=== PATIENT | male | born 1975 | race African-American/Black ===

== ENCOUNTER 2018-07-06 19:44 | Emergency (ER) | payer SELFPAY ==
[~2018-07-06] VITALS: Ht 182.9 cm; Wt 127.0 kg
[~2018-07-06 19:44] MED LIST: ACET500T68 PO; ASPI-612 PO; IBUP200T44 PO; LISI-338 PO; METO25TA4 PO
[2018-07-06 19:58] LABS: BASO # 0.1 x10^3/uL (0.0-0.2); BASO % 1 % (0-3); EOS # 0.2 x10^3/uL (0.0-0.7); EOS % 4 % (0-3); HEMATOCRIT 46.1 % (39.0-53.0); HEMOGLOBIN 15.2 g/dL (13.0-17.5); LYMPH # 2.7 x10^3/uL (1.0-4.8); LYMPH % 40 % (24-48); MEAN CORPUSCULAR HEMOGLOBIN 28 pg (25-35); MEAN CORPUSCULAR HGB CONC 33 g/dL (31-37); MEAN CORPUSCULAR VOLUME 86 fL (79-100); MONO # 0.5 x10^3/uL (0.0-1.1); MONO % 7 % (0-9); NEUT # 3.3 x10^3uL (1.8-7.7); NEUT % 48 % (31-73); PLATELET COUNT 228 x10^3/uL (140-400); RED BLOOD COUNT 5.37 x10^6/uL (4.30-5.70); RED CELL DISTRIBUTION WIDTH 14.6 % (11.5-14.5); WHITE BLOOD COUNT 6.8 x10^3/uL (4.0-11.0)
[2018-07-06] MEDS ORDERED: IV NORMAL SALINE 1000ML BAG 1,000 ML IV ONE (20:00)
[2018-07-06 20:09] LABS: CALCIUM 9.3 mg/dL (8.5-10.1); CREATININE 1.2 mg/dL (0.7-1.3); GFR 79.6; POTASSIUM 3.8 mmol/L (3.5-5.1)
[2018-07-06 20:10] LABS: PROTHROMBIN TIME PATIENT 12.8 SEC (11.7-14.0)
[2018-07-06 20:15] LABS: ALBUMIN 3.9 g/dL (3.4-5.0); ALBUMIN/GLOBULIN RATIO 1.2 (1.0-1.7); TOTAL BILIRUBIN 0.3 mg/dL (0.2-1.0); TOTAL PROTEIN 7.1 g/dL (6.4-8.2)
[2018-07-06] MEDS ORDERED: LABETALOL 20 MG/4 ML DISP.SYRIN. IVP ONE (20:45)
--- NOTE | 2018-07-06 21:07 | RAD ---
CT scan of the head without contrast 07/06/2018 Clinical History: Hypertension. Technique: Unenhanced, contiguous, 5 mm axial sections were obtained through the head. One or more of the following individualized dose reduction techniques were utilized for this study: 1. Automated exposure control. 2. Adjustment of the mA and/or kV according to patient size. 3. Use of iterative reconstruction technique. Findings: No previous studies are available for comparison. There is mild generalized parenchymal atrophy. No acute parenchymal abnormality is seen. No extra-axial fluid collection is noted. No skull fracture is seen. Impression: No acute intracranial abnormality is seen. Electronically signed by: Doc Briceno MD (07/06/2018 9:03 PM) [facility]
[2018-07-06 22:06] VITALS: BP 190/117
--- NOTE | 2018-07-07 01:12 | PHYS DOC ---
Past Medical History Past Medical History: Hypertension Additional Past Medical Histor: CHRONIC BACK PAIN, DRUG ABUSE Past Surgical History: No Surgical History Alcohol Use: Occasionally Drug Use: Marijuana, Phencyclidine, Other Adult General Chief Complaint Chief Complaint: ALTERED MENTAL STATUS HPI HPI Patient is a 42 year old male who is presenting with chief complaint of altered mental status. Patient was found down on the street reported history of PCP use. History limited by the patient's mental status. Patient denies any chest pain no shortness of breath does take blood pressure medicine he says he has enough prescriptions at home although he has not been compliant today Review of Systems Review of Systems Limited by altered mental status Current Medications Current Medications Current Medications Medications (Trade) Dose Ordered Sig/Marimar Start Time Stop Time Status Last Admin Dose Admin Labetalol HCl (Normodyne Iv Push) 20 mg 1X ONCE 07/06/18 20:45 07/06/18 20:46 DC 07/06/18 21:37 20 MG Lorazepam (Ativan Inj) 2 mg 1X ONCE 07/06/18 20:00 07/06/18 20:01 DC 07/06/18 20:00 2 MG Sodium Chloride 1,000 ml @ 1,000 mls/hr 1X ONCE 07/06/18 20:00 07/06/18 20:59 DC 07/06/18 20:00 1,000 MLS/HR Allergies Allergies Allergies Coded Allergies Type Severity Reaction Last Updated Verified No Known Drug Allergies 05/16/13 No Physical Exam Physical Exam Constitutional: Well developed, well nourished, mild distress HENT: Normocephalic, abrasion on the anterior lip, bilateral external ears normal, oropharynx moist, no oral exudates, nose normal. [] Eyes: PERRLA, EOMI, conjunctiva normal, no discharge. [] Neck: Normal range of motion, no tenderness, supple, no stridor. [] Cardiovascular: Mild tachycardia no definite murmur Lungs & Thorax: Bilateral breath sounds clear to auscultation [] Abdomen: Bowel sounds normal, soft, no tenderness, no masses, no pulsatile masses. [] Skin: Warm, dry, no erythema, no rash. [] Back: No tenderness, no CVA tenderness. [] Extremities: No tenderness, no cyanosis, no clubbing, ROM intact, no edema. [] Neurologic: Alert and oriented X 2, normal motor function, normal sensory function, no focal deficits noted. []Gait normal Psychologic: Affect normal, judgement normal, moodM mild anxiety Current Patient Data Vital Signs Vital Signs Date Time Temp Pulse Resp B/P (MAP) Pulse Ox O2 Delivery O2 Flow Rate FiO2 07/06/18 22:06 87 07/06/18 21:37 208/134 07/06/18 20:44 97 07/06/18 19:44 99.0 18 Room Air 99.0 Lab Values Laboratory Tests Test 07/06/18 19:50 White Blood Count 6.8 x10^3/uL (4.0-11.0) Red Blood Count 5.37 x10^6/uL (4.30-5.70) Hemoglobin 15.2 g/dL (13.0-17.5) Hematocrit 46.1 % (39.0-53.0) Mean Corpuscular Volume 86 fL (79-100) Mean Corpuscular Hemoglobin 28 pg (25-35) Mean Corpuscular Hemoglobin Concent 33 g/dL (31-37) Red Cell Distribution Width 14.6 % (11.5-14.5) H Platelet Count 228 x10^3/uL (140-400) Neutrophils (%) (Auto) 48 % (31-73) Lymphocytes (%) (Auto) 40 % (24-48) Monocytes (%) (Auto) 7 % (0-9) Eosinophils (%) (Auto) 4 % (0-3) H Basophils (%) (Auto) 1 % (0-3) Neutrophils # (Auto) 3.3 x10^3uL (1.8-7.7) Lymphocytes # (Auto) 2.7 x10^3/uL (1.0-4.8) Monocytes # (Auto) 0.5 x10^3/uL (0.0-1.1) Eosinophils # (Auto) 0.2 x10^3/uL (0.0-0.7) Basophils # (Auto) 0.1 x10^3/uL (0.0-0.2) Prothrombin Time 12.8 SEC (11.7-14.0) Prothrombin Time INR 1.0 (0.8-1.1) Sodium Level 144 mmol/L (136-145) Potassium Level 3.8 mmol/L (3.5-5.1) Chloride Level 106 mmol/L (98-107) Carbon Dioxide Level 26 mmol/L (21-32) Anion Gap 12 (6-14) Blood Urea Nitrogen 15 mg/dL (8-26) Creatinine 1.2 mg/dL (0.7-1.3) Estimated GFR (Cockcroft-Gault) 79.6 BUN/Creatinine Ratio 13 (6-20) Glucose Level 105 mg/dL (70-99) H Calcium Level 9.3 mg/dL (8.5-10.1) Total Bilirubin 0.3 mg/dL (0.2-1.0) Aspartate Amino Transferase (AST) 31 U/L (15-37) Alanine Aminotransferase (ALT) 36 U/L (16-63) Alkaline Phosphatase 102 U/L (46-116) Total Protein 7.1 g/dL (6.4-8.2) Albumin 3.9 g/dL (3.4-5.0) Albumin/Globulin Ratio 1.2 (1.0-1.7) Laboratory Tests 07/06/18 19:50 Laboratory Tests 07/06/18 19:50 EKG EKG [] Radiology/Procedures Radiology/Procedures [] Impressions: Findings: No previous studies are available for comparison. There is mild generalized parenchymal atrophy. No acute parenchymal abnormality is seen. No extra-axial fluid collection is noted. No skull fracture is seen. Impression: No acute intracranial abnormality is seen. Electronically signed by: Doc Briceno MD (07/06/2018 9:03 PM) [facility] DICTATED and SIGNED BY: DOC BRICENO MD DATE: 07/06/182102 Course & Med Decision Making Course & Med Decision Making Pertinent Labs and Imaging studies reviewed. (See chart for details) PCP use CT head was done given the elevated blood pressure we did give a dose of labetalol to blood pressure did come down to still elevated but safe for discharge home patient says he has blood pressure medication he can take when he gets home. He N Lutz with a steady gait he is discharged after improvement in his mental status in stable condition Dragon Disclaimer Dragon Disclaimer This electronic medical record was generated, in whole or in part, using a voice recognition dictation system. Departure Departure Impression: Primary Impression: Drug abuse Disposition: HOME, SELF-CARE Condition: STABLE Referrals: JIM INGRAM (PCP) Patient Instructions: Drug Abuse, FAQs SCOT ENRIQUEZ MD July 07, 2018 01:12
--- NOTE | 2018-07-07 07:20 | EKG ---
[facility] [address] [place] [address] Test Date: 2018-07-06 Test Time: 19:59:53 Pat Name: FAITH GALEANO Department: Room: Gender: M Fish Packer: : [id number] Requested By: SCOT ENRIQUEZ Order Number: [id number] Reading MD: Amado Cruz Measurements Intervals [place] Rate: 105 P: 36 W[place]: 180 QRS: 28 QRSD: 92 T: 17 QT: 332 QTc: 443 Interpretive Statements SINUS TACHYCARDIA Electronically Signed On 07-29-2018 12:09:45 CDT by Amado Cruz
== END 2018-07-06 22:15 | disposition home or self-care (01) ==
LOC: ER 19:44
DX: F16.20 Hallucinogen dependence, uncomplicated (principal); S00.511A Abrasion of lip, initial encounter; G89.29 Other chronic pain; I10 Essential (primary) hypertension; R41.82 Altered mental status, unspecified; R00.0 Tachycardia, unspecified; X58.XXXA Exposure to other specified factors, initial encounter; Y93.89 Activity, other specified; Y92.488 Other paved roadways as the place of occurrence of the external cause; Y99.8 Other external cause status
CPT/HCPCS: 36415; 70450; 80053; 85025; 85610; 93005; 96361; 96374; 96375; 99285; J2060; J3490; J7030

== ENCOUNTER 2021-06-01 14:31 | Emergency (ER) | payer SELFPAY ==
[~2021-06-01] VITALS: Ht 182.9 cm; Wt 138.8 kg
[~2021-06-01 14:31] MED LIST changes: -ASPI-612 PO; +ASPI-886 PO; -LISI-338 PO; +LISI5TAB15 PO
[2021-06-01 14:36] VITALS: BP 160/87
--- NOTE | 2021-06-01 15:33 | RAD ---
XR FOOT_RIGHT 3 VIEWS, XR EXAM OF ANKLE_RIGHT 3VIEWS Clinical indications: Reason: pain / Spl. Instructions: / History: Right foot: No acute fracture or dislocation or osteolytic process is evident. Plantar spur of the calcaneus is evident. Minimal degenerative osteoarthritis of the first metatarsal phalangeal joint is seen. Right ankle: Medial and lateral soft tissue swelling is seen. There is an old appearing accessory oss ification center of the distal right fibular epiphysis with sclerotic edges. No acute-appearing fract ure is evident otherwise. No lytic process is seen. The mortise ankle joint is intact. Mild degenerat rose spurring of the tibiotalar joint compartment is seen. IMPRESSION: No acute osseous abnormality is evident. Electronically signed by: Pravin Doe MD (06/01/2021 3:31 PM) [id number]
--- NOTE | 2021-06-01 15:36 | PHYS DOC ---
Past Medical History Past Medical History: High Cholesterol, Hypertension Additional Past Medical Histor: CHRONIC BACK PAIN, DRUG ABUSE Past Surgical History: No Surgical History Smoking Status: Current Every Day Smoker Alcohol Use: Occasionally Drug Use: Marijuana, Phencyclidine, Other General Adult EDM: Chief Complaint: ANKLE PROBLEM HPI: HPI: Patient is a 45 year old male with history of hypertension, high cholesterol, presented to the ED today complaining of generalized 7 out of 10 right foot and right ankle pain with swelling, symptoms began 4 days ago. Patient denies any trauma. He states he walks a lot at work and believes this is the trigger for the pain. Describes the pain as sharp and intermittent worse on weightbearing. He states wrapping the ankle and foot with Jordan bandage has been relieving some of the pain. Review of Systems: Review of Systems: Constitutional: Denies fever or chills. [] Musculoskeletal: Reports right foot and right ankle pain and swelling Integument: Denies rash. [] Neurologic: Denies headache, focal weakness or sensory changes. [] Psychiatric: Denies depression or anxiety. [] Heart Score: C/O Chest Pain: N/A Risk Factors: Risk Factors: DM, Current or recent (<one month) smoker, HTN, HLP, family history of CAD, obesity. Risk Scores: Score 0 - 3: 2.5% MACE over next 6 weeks - Discharge Home Score 4 - 6: 20.3% MACE over next 6 weeks - Admit for Clinical Observation Score 7 - 10: 72.7% MACE over next 6 weeks - Early Invasive Strategies Allergies: Allergies: Allergies Coded Allergies Type Severity Reaction Last Updated Verified No Known Drug Allergies 06/01/21 No Physical Exam: PE: Constitutional: Well developed, well nourished, no acute distress, non-toxic appearance. [] Abdomen: Bowel sounds normal, soft, no tenderness, no masses, no pulsatile masses. [] Skin: Warm, dry, no erythema, no rash. [] Back: No tenderness, no CVA tenderness. [] Extremities: Right foot and ankle with no obvious deformity. Soft tissue swelling noted throughout the foot and ankle worse on the right ankle. Tenderness on palpation of the right ankle, no navicular bone tenderness to the foot, no tenderness on the base of the fifth metatarsal of the right foot. Full range of motion to the right foot, ankle, toes. +2 right pedal pulse. Cap r efill less than 2 seconds to right toes. Neurologic: Alert and oriented X 3, normal motor function, normal sensory function, no focal deficits noted. [] Psychologic: Affect normal, judgement normal, mood normal. [] Current Patient Data: Vital Signs: Vital Signs Date Time Temp Pulse Resp B/P (MAP) Pulse Ox O2 Delivery O2 Flow Rate FiO2 06/01/21 14:36 98.6 106 18 160/87 (111) 96 Room Air 98.6 EKG: EKG: [] Radiology/Procedures: Radiology/Procedures: []PROCEDURE: FOOT RIGHT 3V XR FOOT_RIGHT 3 VIEWS, XR EXAM OF ANKLE_RIGHT 3VIEWS Clinical indications: Reason: pain / Spl. Instructions: / History: Right foot: No acute fracture or dislocation or osteolytic process is evident. Plantar spur of the calcaneus is evident. Minimal degenerative osteoarthritis of the first metatarsal phalangeal joint is seen. Right ankle: Medial and lateral soft tissue swelling is seen. There is an old appearing accessory ossification center of the distal right fibular epiphysis wi th sclerotic edges. No acute-appearing fracture is evident otherwise. No lytic process is seen. The mortise ankle joint is intact. Mild degenerative spurring of the tibiotalar joint compartment is seen. IMPRESSION: No acute osseous abnormality is evident. Electronically signed by: Aaron Doe MD (06/01/2021 3:31 PM) [id number] DICTATED and SIGNED BY: AARON DOE MD DATE: 06/01/21 1527 PROCEDURE: ANKLE RIGHT 3V XR FOOT_RIGHT 3 VIEWS, XR EXAM OF ANKLE_RIGHT 3VIEWS Clinical indications: Reason: pain / Spl. Instructions: / History: Right foot: No acute fracture or dislocation or osteolytic process is evident. Plantar spur of the calcaneus is evident. Minimal degenerative osteoarthritis of the first metatarsal phalangeal joint is seen. Right ankle: Medial and lateral soft tissue swelling is seen. There is an old appearing accessory ossification center of the distal right fibular epiphysis with sclerotic edges. No acute-appearing fracture is evident otherwise. No lytic process is seen. The mortise ankle joint is intact. Mild degenerative spurring of the tibiotalar joint compartment is seen. IMPRESSION: No acute osseous abnormality is evident. Electronically signed by: Aaron Doe MD (06/01/2021 3:31 PM) [id number] DICTATED and SIGNED BY: ARAON DOE MD DATE: 06/01/21 1527 Course & Med Decision Making: Course & Med Decision Making Pertinent Labs and Imaging studies reviewed. (See chart for details) This a 45-year-old male patient presented to the ED today with right foot and ankle pain, symptoms began 4 days ago. Right foot and right ankle x-rays interpreted by radiologist are negative for any acute findings, Jordan bandage applied to the right foot, Ortho shoe provided by the ED RN, neurovascular exam done by the RN is normal. Ice elevation encouraged. Follow-up with Ortho in 1 week if pain persists Dragon Disclaimer: Dragon Disclaimer: This electronic medical record was generated, in whole or in part, using a voice recognition dictation system. Departure Departure Impression: Primary Impression: Right foot pain Additional Impression: Right ankle pain Qualified Codes: M25.571 - Pain in right ankle and joints of right foot Disposition: HOME / SELF CARE / HOMELESS Condition: STABLE Referrals: NO PCP (PCP) ABHIJEET HUERTA Jr. DO follow up in 1-2 weeks Patient Instructions: Ankle Pain Additional Instructions: You were seen for right foot and right ankle pain, your right foot and right ankle x-rays are negative for any acute findings, you have some arthritis in your ankle. Try to ice and elevate the affected extremity. Wrap it with the Jordan bandage provided as tolerated. Follow-up with your orthopedic doctor provided or your own doctor in 1 to 2 weeks. Take the medicine prescribed as ordered Scripts Methylprednisolone (MEDROL) 4 Mg Tab.ds.pk 1 PKG PO UD, #1 PKG Prov: MARTIN JUAREZ ACCELERATOR TECHNICIAN 06/01/21 Diclofenac Potassium (DICLOFENAC POTASSIUM) 50 Mg Tablet 1 TAB PO BID, #60 TAB 1 Refill Prov: MARTIN JUAREZ ACCELERATOR TECHNICIAN 06/01/21 MARTIN JUAREZ ACCELERATOR TECHNICIAN Jun 01, 2021 15:36
[2021-06-01] MEDS ORDERED: DICL50TA2 PO (15:49)
[2021-06-01] MEDS ORDERED: METH4TAB2 PO (15:49)
== END 2021-06-01 16:34 | disposition home or self-care (01) ==
LOC: ER 14:31
DX: M25.571 Pain in right ankle and joints of right foot (principal); M79.671 Pain in right foot; E78.00 Pure hypercholesterolemia, unspecified; I10 Essential (primary) hypertension; G89.29 Other chronic pain; F17.200 Nicotine dependence, unspecified, uncomplicated
CPT/HCPCS: 73610; 73630; 99284